=== PATIENT | female | born 1980 | race Hispanic/Latino ===

== ENCOUNTER 2016-11-28 14:59 | Outpatient (CLI) | payer OTHER ==
[2016-11-28 15:41] LABS: Hematocrit 37.3 % (30.3-42.9); Hemoglobin 12.7 gm/dl (10.1-14.3); Mean Corpuscular HGB Conc 34 % (30-34); Mean Corpuscular Hemoglobin 31 pg (28-32); Mean Corpuscular Volume 91 fl (79-97); Platelet Count 265 K/mm3 (140-440); Red Blood Count 4.13 M/mm3 (3.65-5.03); Red Cell Distribution Width 13.3 % (13.2-15.2); White Blood Count 5.9 K/mm3 (4.5-11.0)
[2016-11-28 16:15] LABS: Alanine Aminotransferase 9 units/L (7-56); Albumin 4.1 g/dL (3.9-5); Albumin/Globulin Ratio 1.5 %; Alkaline Phosphatase 46 units/L (35-129); Anion Gap 18 mmol/L; Blood Urea Nitrogen 6 mg/dL (7-17); Carbon Dioxide 24 mmol/L (22-30); Chloride 102.2 mmol/L (98-107); Glucose 90 mg/dL (65-100); Potassium 3.7 mmol/L (3.6-5.0); Sodium 140 mmol/L (137-145); Total Protein 6.8 g/dL (6.3-8.2)
== END 2016-11-28 15:00 | disposition home or self-care (01) ==
LOC: LAB 14:59
PROVIDERS: ATTEND Obstetrics & Gynecology
DX: N93.9 Abnormal uterine and vaginal bleeding, unspecified (principal)
CPT/HCPCS: 36415; 80053; 84702; 85027; 86850; 86900; 86901

== ENCOUNTER 2019-03-13 06:58 | Day surgery (SDC) | payer OTHER ==
--- NOTE | 2019-03-11 12:42 | History and Physical Report ---
History of Present Illness Date of examination: 03/04/19 History of present illness: Patient has been reassessed/reevaluated. H&P has been reviewed. No interval changes. 38 yowf presently usins ParaGard IUD for contraception, desires sterilization. Discussed with various methods of contraceptives including abstinence, barrier and hormonal. Discussed oral, implantable, dermal, injectable,intravaginal and intrauterine methods. Patient declined temporary contraceptives. Discuss the permanency of sterilization. High risk of regret and 0.5 to 1% risk of failure. Questions answered Patient understands and desires to proceed with salpingectomy and IUD removal Vital Signs: Patient Profile: 38 Years Old Female LMP: 02/18/2019 Height: 67 inches Weight: 157 pounds BMI: 24.59 Menstrual History: LMP (date): 02/18/2019 On BCP's at conception: no Current Method of Contraception: IUD Past History : 4 Term Births: 0 Premature Births: 3 Living Children: 3 Para: 3 Mult. Births: 0 Prev : 0 Aborta: 1 Elect. Ab: 0 Spont. 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 History Uterine Surgery (not C/S): negative Operations: inguinal hernia 1986 foot surgery 1999 Breast Augmentation: " new boobs this year" 2013 Sinus blockage had surgery Had PVCs during surgery Hospitalizations: negative Anesthesia Complications: negative Abnormal PAP: negative Uterine Anomaly: negative JAJA Exposure: negative Infertility: negative Infection History HIV Risk Eval: no Current Allergies (reviewed today): CODEINE (Critical) Past Medical History: Arrhythmia Past Surgical History: inguinal hernia 1986 foot surgery 1999 Breast Augmentation: 2013 Sinus blockage had surgery Had PVCs during surgery Family History Summary: Other family member - Has No Family History of Ovarvian Cancer - Entered On: 03/04/2019 Other family member - Has No Family History of Colon Cancer - Entered On: 03/04/2019 Other family member - Has Family History of Hypertension - Entered On: 03/04/2019 Other family member - Has Family History of Coronary Heart Disease - Entered On: 03/04/2019 General Comments - FH: Family History Breast Cancer pt's mom diagnosed 47 Social History: Patient is [facility] Smoking History: Patient has never smoked. Risk Factors: Smoked Tobacco Use: Never smoker Smokeless Tobacco Use: Never Passive smoke exposure: no Drug use: no HIV high-risk behavior: no Caffeine use: 1 drinks per day Alcohol use: yes Type: occ Exercise: yes Seatbelt use: 100 % Review of Systems General Denies fever, chills, sweats, anorexia, fatigue, weakness, malaise, weight loss and sleep disorder. Denies vaginal discharge, incontinence, dysuria, hematuria, urinary frequency, amenorrhea, menorrhagia, abnormal vaginal bleeding, pelvic pain, genital sores, decreased libido, painful periods, painful sex, urinary urgency, hot flashes, vaginal dryness, vaginal itching and vaginal odor. CV Denies chest pains, palpitations, syncope, dyspnea on exertion, orthopnea, PND and peripheral edema. Resp Denies cough, dyspnea at rest, excessive sputum, hemoptysis, wheezing and pleurisy. GI Denies nausea, vomiting, diarrhea, constipation, change in bowel habits, abdominal pain, melena, hematochezia, jaundice, gas/bloating, indigestion/heartburn, dysphagia and odynophagia. Breast Denies left breast lump, right breast lump, nipple discharge, bloody discharge from nipple, breast pain, abnormal mammogram and breast enlargement. Psych Denies depression, anxiety, irritability and mood swings. Past History Past Medical History: arrhythmia, other (See HPI) Past Surgical History: Other (See HPI) Social history: full code (See HPI) Family history: other (See HPI) Medications and Allergies Allergies Allergy/AdvReac Type Severity Reaction Status Date / Time codeine Allergy Vomiting, Verified 03/13/19 08:22 SOB levofloxacin [From Levaquin] Allergy Unknown Verified 03/10/19 11:31 Home Medications Medication Instructions Recorded Confirmed Last Taken Type Metoprolol Xl [Metoprolol 25 mg PO HS 03/10/19 03/13/19 03/12/19 19:00 History SUCCINATE ER TAB] Review of Systems Constitutional: other (See HPI) Exam - Physical Exam Narrative exam: HEENT: normocephalic, no lesions or deformities Skin no ulcers, xanthomas Chest: respiratory effort normal, clear to auscultation CV: regular, normal S1-S2, no murmur, no rub, no gallop Abdomen: soft, non-tender, no masses, bowel sounds normal Neuro: no gross anomalities Extremities: no clubbing, cyanosis, or edema DELIVERY OF SHOPPING NEWS Exams Vulva/Vagina: normal appearance, no discharge, lesions. No evidence of cystocele or rectocele. Cervix: normal appearance, no lesions, no discharge IUD string seen Uterus: normal position, midline, mobile Adnexae: no masses or tenderness Rectovaginal: exam defered Assessment and Plan - Patient Problems (1) Encounter for sterilization Current Visit: No Status: Acute Plan to address problem: Patient desires sterilization.Discuss the permanency of sterilization. High risk of regret and 0.5 to 1% risk of failure. Discussed the different risk of abdominal versus vaginal approaches. Information given Discussed options of tubal blockage and salpingectomy and it's possible benefit of preventing ovarian cancer and increased risks of bleeding during the procedure. Discuss the risks of the surgery including infection, bleeding possibly heavy enough to require a blood transfusion, possilble damage to bowel, bladder or ureter. Patient understands and desires to proceed with salpingectomy (2) Cardiac arrhythmia Current Visit: No Status: Acute Plan to address problem: Patient has clearance from undergraduate internship (3) IUD contraception Current Visit: No Status: Acute Plan to address problem: Will removal IUD
[2019-03-13] MEDS ORDERED: BACTERIOSTATIC SODIUM CHLORIDE 0.9% 30 ML VIAL INFILTRATI ONE (07:32)
--- NOTE | 2019-03-13 07:34 | Anesthesia Consultation ---
Anesthesia Consult and Med Hx Date of service: 03/13/19 - Airway Anesthetic Teeth Evaluation: Good ROM Head & Neck: Adequate Mental/Hyoid Distance: Adequate Mallampati Class: Class II Intubation Access Assessment: Good - Pulmonary Exam CTA: Yes - Cardiac Exam Cardiac Exam: RRR - Pre-Operative Health Status ASA Pre-Surgery Classification: ASA2 Proposed Anesthetic Plan: General (migraines , PVCs worked up by cardiology and placed prophylatically on metoprolol) - Pulmonary Hx Asthma: No Hx Pneumonia: No - Cardiovascular System Hx Hypertension: Yes - Central Nervous System Hx Psychiatric Problems: No - Other Systems Hx Alcohol Use: Yes (Occas) Hx Cancer: No
[2019-03-13] MEDS ORDERED: HYDROmorphone 1 MG/1 ML INJ IV PRN (07:35)
[2019-03-13] MEDS ORDERED: ONDANSETRON 4 MG/2 ML INJ IV PRN (07:35)
--- NOTE | 2019-03-13 07:35 | Anesthesia Day of Surgery ---
Anesthesia Day of Surgery - Day of Surgery Patient Examined: Yes Patient H&P Reviewed: Yes Patient is NPO: Yes
[2019-03-13] MEDS ORDERED: MIDAZOLAM 2 MG/2 ML INJ IV NR (08:00)
[2019-03-13] MEDS ORDERED: LACTATED RINGERS 1,000 ML IV SCH (08:00)
[2019-03-13] MEDS ORDERED: PROPOFOL 200 MG/20 ML VIAL IV ONE (09:09)
[2019-03-13] MEDS ORDERED: fentaNYL 100 MCG/2 ML INJ ONE (09:09)
[2019-03-13] MEDS ORDERED: ROCURONIUM 50 MG/5 ML INJ IV ONE (09:11)
[2019-03-13] MEDS ORDERED: LIDOCAINE MPF (2%) 20 MG/1 ML VIAL 5 ML ONE (09:11)
[2019-03-13] MEDS ORDERED: BUPIVACAINE/PF (0.5%) 5 MG/1 ML 30 ML VIAL INFILTRATI ONE ×2 (09:13→10:10)
[2019-03-13] MEDS ORDERED: dexAMETHasone 20 MG/5 ML VIAL ONE ×2 (09:43)
[2019-03-13] MEDS ORDERED: ONDANSETRON 4 MG/2 ML INJ ONE (09:43)
[2019-03-13] MEDS ORDERED: NEOSTIGMINE 10MG/10 ML INJ MDV ONE (10:12)
[2019-03-13] MEDS ORDERED: GLYCOPYRROLATE 0.4 MG/2 ML INJ ONE (10:12)
[2019-03-13] MEDS ORDERED: LACTATED RINGERS 1,000 ML ONE (10:19)
--- NOTE | 2019-03-13 10:45 | Operative Report ---
Operative Report Operative Report: Pre-operative diagnosis: Patient desires permanent sterilization Post-operative diagnosis: Same Procedure name(s): Laparoscopic bilateral salpingectomy Surgeon: Pj Monae MD Cut Off Sawyer: [] Anesthesia: General endotracheal EBL: Minimal Complications: None Findings: Patient with uterus approximately 8-10 weeks in size with normal fallopian tubes bilaterally Specimen(s): Distal end of the left and right fallopian tubes Patient was brought in the operating room. General anesthesia was induced without difficulty. She was placed in dorsal lithotomy position. Prepped and draped in usual sterile manner. Her urinary bladder with was emptied with a red rubber catheter. Speculum placed in her vagina and Sargis uterine manipulator was placed for uterine manipulation. Attention was then switched to the patient's abdomen. An infra-umbilical incision was made with a scalpel. This i ncision was spread with a hemostat. A 5 mm trocar was placed in this incision while lifting high the abdominal wall. Intra-abdominal presence was verified directly with the laparoscope. The patient was then insufflated to approximately 3 L of CO2 gas. The patient's findings as noted above. An accessory puncture was made suprapubically. The 8 mm trocar was placed through this incision under direct visualization with no evidence of internal organ damage. Each of the fallopian tube were identified by its fimbriated end. Starting on patient's right fallopian tube a portion approximately 1-2 cm from each cornua was grasped with the Ligature and transected. The ligature was then used along the mesosalpinx of the tube until the fimbriated end was reached and the tube was detached. This specimen was then pulled through the 8 mm trocar without any difficulty. Attention was then switched the left fallopian tube where the same procedure was done without any difficulty. Both surgical sites were hemostatic. All instruments were removed. The patient was deinsufflated. bilaterally. At this time all instruments were removed. The patient was deinsufflated. The skin incisions were closed subcuticular with 4-0 Vicryl. Marcaine was given subcuticularly for postoperative pain relief. The patient tolerated procedure well. She was awakened in the operating room and accompanied to the recovery room in good condition.
--- NOTE | 2019-03-13 10:47 | Short Stay Summary ---
Short Stay Documentation Date of service: 03/13/19 - History Past Medical History: arrhythmia, other (See HPI) Past Surgical History: Other (See HPI) Social history: full code (See HPI) - Allergies and Medications Current Medications: Allergies codeine Allergy (Verified 03/13/19 08:22) Vomiting, SOB levofloxacin [From Levaquin] Allergy (Verified 03/10/19 11:31) Unknown Home Medications Medication Instructions Recorded Confirmed Last Taken Type Metoprolol Xl [Metoprolol 25 mg PO HS 03/10/19 03/13/19 03/12/19 19:00 History SUCCINATE ER TAB] Ketorolac [Toradol] 10 mg PO Q6H PRN #20 tablet 03/13/19 Unknown Rx Active Medications Hydromorphone HCl (Dilaudid) 0.25 mg IV Q10MIN PRN PRN Reason: Pain, Moderate (4-6) Stop: 03/13/19 22:00 Lactated Ringer's (Lactated Ringers) 1,000 mls @ 100 mls/hr IV DIRECT CARLA Last Admin: 03/13/19 08:20 Dose: 100 mls/hr Documented by: Midazolam HCl (Versed) 2 mg IV PREOP NR Stop: 03/13/19 23:59 Last Admin: 03/13/19 08:50 Dose: 2 mg Documented by: Ondansetron HCl (Zofran) 4 mg IV ONCE PRN PRN Reason: Nausea And Vomiting Stop: 03/13/19 13:00 - Physical exam General appearance: no acute distress Heart: Regular rate Gastrointestinal: normal Female Genitourinary: deferred Rectal Exam: deferred Extremities: no ischemia - Brief post op/procedure progress note Date of procedure: 03/13/19 (see dictated operative note) - Hospital course Hospital course: Patient was admitted underwent the above him procedure without any complications. Patient will be discharged with follow-up in office in 1-2 weeks for postop check. - Disposition Condition at discharge: Good Disposition: DC-01 TO HOME OR SELFCARE - Discharge Diagnoses (1) Encounter for sterilization Status: Acute (2) Cardiac arrhythmia Status: Chronic Qualifiers: Premature depolarization type: unspecified (3) IUD contraception Status: Resolved Short Stay Discharge Plan Activity: advance as tolerated Diet: regular Wound: open to air Follow up with: PRIMARY CARE, [Primary Care Provider] - 7 Days Prescriptions: Ketorolac [Toradol] 10 mg PO Q6H PRN #20 tablet PRN Reason: Pain
[2019-03-13] MEDS ORDERED: KETOROLAC 10 MG TAB PO PRN (10:51)
[2019-03-13] MEDS ORDERED: MEPERIDINE 25 MG/1 ML INJ ONE (10:54)
[2019-03-13] MEDS ORDERED: MEPERIDINE 25 MG/1 ML INJ IV PRN (11:00)
--- NOTE | 2019-03-13 12:25 | Post Anesthesia Evaluation ---
- Post Anesthesia Evaluation Patient Participated: Yes Airway Patent: Yes Stable Respiratory Function: Yes Nausea/Vomiting: No Temp > 96.8F: Yes Pain Manageable: Yes Adequeate Hydration: Yes Anesthesia Complications: No Block Receding Appropriately: Not Applicable Patient on Ventilator: No
[2019-03-13 12:54] VITALS: BP 128/74
== END 2019-03-13 06:59 | disposition home or self-care (01) ==
LOC: OR 06:58
PROVIDERS: ATTEND Obstetrics & Gynecology
DX: Z30.2 Encounter for sterilization (principal); G43.909 Migraine, unspecified, not intractable, without status migrainosus; I10 Essential (primary) hypertension; Z88.5 Allergy status to narcotic agent; Z79.899 Other long term (current) drug therapy; Z88.8 Allergy status to other drugs, medicaments and biological substances; Z72.89 Other problems related to lifestyle; Z98.890 Other specified postprocedural states
CPT/HCPCS: 58661; 81025; 88302; J1100; J1170; J2175; J2250; J2405; J2704; J2710; J3010; J7120

== ENCOUNTER 2020-06-15 12:42 | Outpatient (CLI) | payer OTHER ==
--- NOTE | 2020-06-15 16:32 | Magnetic Resonance Report ---
BILATERAL BREAST MRI WITH AND WITHOUT CONTRAST CLINICAL INFORMATION/INDICATION: High risk screening evaluation. Strong family history of breast canc er (mother). The patient was recently evaluated in Dr. Tran's office for intermittent bilateral breast pain. She has undergone bilateral mammogram at an outside facility with reported benign result s. This mammogram is not available for direct review. Bilateral breast ultrasound has been done which demonstrated numerous cysts. TECHNICAL: Axial T1 and T2-weighted fat sat images were obtained precontrast. Gadolinium-based contra st was injected intravenously and serial axial T1 weighted images with fat saturation were obtained. 3-D MIP projections, kinetic analysis and subtraction imaging was utilized to evaluate. A dedicated 8 -channel breast coil was used for image acquisition. COMPARISON: None FINDINGS: There is low level background enhancement within both breasts. There are bilateral retropectoral [place] implants which appear fully inflated. Scattered small cysts are noted bilaterally. Right breast: No dominant mass or suspicious area of enhancement is seen in the right breast. Intrama mmary lymph node is noted within the upper outer right breast. Left breast: No dominant mass or suspicious area of enhancement is seen in the left breast. Axilla: No pathologically enlarged axillary lymph nodes are identified. Additional findings: Limited imaging of the thorax and upper abdomen demonstrates no focal abnormalit y. IMPRESSION: 1. No MRI abnormality of either breast. 2. Clinical correlation is recommended for the patient's breast pain. Follow up recommendation: Routine yearly BI-RADS Category 2: Benign. Signer Name: Vickie Renae MD Signed: 06/15/2020 4:28 PM Workstation Name: [id number]
== END 2020-06-15 12:43 | disposition home or self-care (01) ==
LOC: SPVIMAG 12:42
PROVIDERS: ATTEND Surgery
DX: R59.0 Localized enlarged lymph nodes (principal); N60.02 Solitary cyst of left breast; N60.01 Solitary cyst of right breast; Z80.3 Family history of malignant neoplasm of breast
CPT/HCPCS: A9577; C8908; 77049

== ENCOUNTER 2021-02-09 13:39 | Outpatient (CLI) | payer OTHER ==
--- NOTE | 2021-02-09 17:11 | Mammography Report ---
DIGITAL SCREENING MAMMOGRAM WITH CAD, 02/09/2021 CLINICAL INFORMATION / INDICATION: Routine screening mammography. SCREENING MAMMO TECHNIQUE: Digital bilateral 2D mammography was obtained in the craniocaudal and mediolateral obliqu e projections. This examination was interpreted with the benefit of Computer-Aided Detection analysis . COMPARISON: None available. FINDINGS: Breast Density: The breasts are heterogeneously dense, which may obscure small masses. No dominant mass, suspicious calcifications, or architectural distortion in either breast. There are bilateral subpectoral saline implants. IMPRESSION: No mammographic evidence of malignancy. Follow up recommendation: Routine yearly BI-RADS Category 2: Benign. A "normal" or negative report should not discourage follow up or biopsy of a clinically significant f inding. A written summary of these findings will be mailed to the patient. The patient will be entered into a mammography reporting system which will generate a reminder letter for the patient's next appointmen t at the appropriate interval. The [employer] recommends yearly mammograms starting at age 40 and continuing as l samantha as a woman is in good health. Breast MRI is recommended for women with an approximate 20-25% or greater lifetime risk of breast cancer, including women with a strong family history of breast or ova doni cancer or who have been treated for Hodgkin's disease. Signer Name: Sage Esquivel MD Signed: 02/09/2021 5:07 PM Workstation Name: [id number]
== END 2021-02-09 13:40 | disposition home or self-care (01) ==
LOC: SPVWC 13:39
PROVIDERS: ATTEND Internal Medicine
DX: Z12.31 Encounter for screening mammogram for malignant neoplasm of breast (principal); N64.89 Other specified disorders of breast
CPT/HCPCS: 77067